=== PATIENT | female | born 1965 | race Hispanic/Latino ===

== ENCOUNTER 2021-10-05 01:30 | Emergency (ER) | payer OTHER ==
[~2021-10-05] VITALS: Ht 160 cm; Wt 68.9 kg
[2021-10-05] MEDS: MORPHINE 2 MG SYG IVP ONE (04:42)
[2021-10-05 04:54] LABS: HEMATOCRIT 37.1 % (36-48); MEAN CORPUSCULAR HEMOGLOBIN 26.7 pg (27.0-33.0); MEAN CORPUSCULAR HGB CONC 33.4 g/dL (32.0-36.0); MEAN CORPUSCULAR VOLUME 79.8 fL (79-99); PLATELET COUNT (AUTO) 275 K/uL (130-400); RED BLOOD CELL COUNT(AUTO) 4.65 MIL/uL (4.00-5.50); RED CELL DISTRIBUTION WIDTH 12.2 % (11.0-15.5); WHITE BLOOD COUNT (AUTO) 10.1 K/uL (4.8-10.8)
[2021-10-05 05:05] LABS: CREATININE 0.7 mg/dL (0.5-1.5); POTASSIUM 3.5 mmol/L (3.5-5.1)
[2021-10-05 05:10] LABS: ALBUMIN 3.5 g/dL (3.5-5.0); BILIRUBIN,TOTAL 0.2 mg/dL (0.2-1.0); TOTAL PROTEIN, SERUM 7.3 g/dL (6.0-8.3)
[2021-10-05] MEDS ORDERED: DOXY-336 PO (05:37)
[2021-10-05] MEDS ORDERED: IBUP-2070 PO (05:37)
[2021-10-05] MEDS: INSULIN HUMULIN R 100 UNIT/ML 3ML IV ONE (06:02)
[2021-10-05] MEDS: SULFAMETHOX-TMP DS 800/160 TAB PO SCH (06:02)
[2021-10-05] MEDS: CEFTRIAXONE 1G VIAL IVP ONE (06:02)
[2021-10-05] MEDS: LIDOCAINE HCL 400MG/20ML VIAL ONE (06:03)
[2021-10-05] MEDS: MORPHINE 2 MG SYG ONE (06:03)
[2021-10-05 06:04] LABS: BAND NEUTROPHILS % (MANUAL) 1 % (0-2); BASOPHILS % (MANUAL) 1 % (0-2); EOSINOPHILS % (MANUAL) 3 % (1-6); LYMPHOCYTES % (MANUAL) 37 % (22-44); MAN.DIFF COMMENT-IMPRESSION MANUAL DIFFERENTIAL; MONOCYTES % (MANUAL) 2 % (2-9); SEGMENTED NEUTROPHILS % 56 % (40-70)
[2021-10-05 06:05] LABS: PLATELET MORPHOLOGY COMMENT ADEQUATE
[2021-10-05 06:11] VITALS: BP 126/72
== END 2021-10-05 06:08 | disposition home or self-care (01) ==
LOC: EDH 01:30
DX: N75.0 Cyst of Bartholin's gland (principal); E11.65 Type 2 diabetes mellitus with hyperglycemia
CPT/HCPCS: 36415; 56420; 80053; 85025; 96374; 96375; 99284; J0696; J1815; J3490